=== PATIENT | female | born 1955 ===

== ENCOUNTER → 2022-06-02 06:00 | Outpatient (CLI) | payer OTHER ==
[~2022-06-02] VITALS: Ht 154.9 cm; Wt 68.9 kg
[~2022-06-02 06:00] MED LIST: HYZAAR 100-251 EACH PO; LEVOXYL25 MCG PO; WELLBUTRIN XL300 MG PO
== END | disposition home or self-care (01) ==
LOC: LAB 06:00 → SURH 06-04 08:30 → EDSTATUS 06-04 12:30 → SURH 06-04 12:30
PROVIDERS: ATTEND Surgery
DX: K63.2 Fistula of intestine (principal); K59.01 Slow transit constipation; Z03.818 Encounter for observation for suspected exposure to other biological agents ruled out; Z20.822 Contact with and (suspected) exposure to COVID-19; I10 Essential (primary) hypertension

== ENCOUNTER 2022-07-23 07:55 | Inpatient (IN) | payer OTHER ==
[~2022-07-23] VITALS: Ht 154.9 cm; Wt 68.9 kg
[~2022-07-23 07:55] MED LIST changes: +LIPITOR20 MG PO
[2022-07-25] MEDS ORDERED: HYOSCYAMINE0.125 M1 SL (12:43)
[2022-07-25] MEDS ORDERED: PEPCID AC20 MG PO (12:44)
[2022-07-25] MEDS ORDERED: TRAM1TAB98 PO (12:44)
== END 2022-07-25 13:05 | disposition home or self-care (01) | DRG 331 ==
LOC: CIR.AMB 07:55 → O/R 14:01 → SURH 14:01
PROVIDERS: ADMIT Surgery; ATTEND Surgery
PROC: 0DJD4ZZ Inspection of Lower Intestinal Tract, Percutaneous Endoscopic Approach (ICD-10-PCS; 2022-07-23)
PROC: 0DQP0ZZ Repair Rectum, Open Approach (ICD-10-PCS; principal; 2022-07-23 12:00)
DX: K62.3 Rectal prolapse (principal); K59.01 Slow transit constipation